=== PATIENT | female | born 1955 | race African-American/Black ===

== ENCOUNTER 2021-12-25 17:28 | Inpatient (IN) | payer OTHER ==
[2021-12-25 22:25] LABS: HEMATOCRIT 37.5 % (32.4-45.2); LYMPH % 49.4 % (8-40); MCH 27.4 pg (25.7-33.7); MCHC 32.1 g/dl (32.0-36.0); MEAN CELL VOLUME 85.5 fl (80-96); MEAN PLT VOLUME 7.7 fl (7.5-11.1); MONO % 8.8 % (3.8-10.2); NEUT % 37.8 % (42.8-82.8); PLATELET COUNT 306 10^3/uL (134-434); RBC 4.39 M/mm3 (3.60-5.2); RDW 13.1 % (11.6-15.6); WHITE BLOOD COUNT 5.4 K/mm3 (4.0-10.0)
[2021-12-25 22:31] LABS: INR 0.93 (0.83-1.09); PROTHROMBIN TIME (PATIENT) 10.7 SEC (9.7-13.0)
[2021-12-25 22:34] LABS: ACTIVATED PTT 29.1 SECONDS (25.2-36.5)
[2021-12-25 22:47] LABS: CALCIUM 9.1 mg/dL (8.5-10.1)
[2021-12-25 22:48] LABS: ALBUMIN 3.6 g/dl (3.4-5.0); BLOOD UREA NITROGEN 12.2 mg/dL (7-18)
[2021-12-25 22:51] LABS: CREATININE 0.7 mg/dL (0.55-1.3)
[2021-12-25 22:52] LABS: BILIRUBIN,TOTAL 0.2 mg/dL (0.2-1)
[2021-12-25 22:57] LABS: N-TERMINAL BNP 192.3 pg/ml (5-125)
[2021-12-26] MEDS ORDERED: ACETAMINOPHEN 1000 MG/100 ML BAG IVPB ONE (00:22)
[2021-12-26] MEDS ORDERED: ACETAMINOPHEN INJECTION 100 ML IVPB ONE (01:06)
[2021-12-26 04:01] VITALS: BMI 34.3
[2021-12-26] MEDS: CARVEDILOL 6.25 MG TABLET (FP) PO SCH ×2 (04:16→10:01)
[2021-12-26] MEDS: INSULIN SLIDING SCALE (NOVOLOG) 1 VIAL SQ SCH ×3 (06:44→17:19)
[2021-12-26] MEDS ORDERED: ASPIRIN COATED 81 MG TABLET.EC PO SCH (10:00)
[2021-12-26] MEDS ORDERED: FLU VACC QS2022-23(6MOS UP)/PF 60 MCG/0.5 ML SYRINGE IM ONE (10:00)
[2021-12-26] MEDS ORDERED: amLODIPine BESYLATE 5 MG TABLET (FP) PO SCH (10:00)
[2021-12-26] MEDS ORDERED: CYCLOBENZAPRINE HCL 5 MG TABLET PO SCH (10:00)
[2021-12-26] MEDS ORDERED: ISOSORBIDE MONONITRATE 30 MG TAB.SR.24H (FP) PO SCH (10:00)
[2021-12-26] MEDS ORDERED: LOSARTAN 50MG/HCTZ 12.5MG 1 TAB PO SCH (10:00)
[2021-12-26] MEDS ORDERED: CLOPIDOGREL BISULFATE 75 MG TABLET (FP) PO SCH (10:00)
[2021-12-26] MEDS ORDERED: PATIENT'S OWN MEDICATION (NON-FORMULARY) (Empagliflozin 25 MG Tablet) PO SCH (10:00)
[2021-12-26] MEDS ORDERED: ENOXAPARIN NA (PORCINE) 40 MG/0.4 ML DISP.SYRIN SQ SCH (10:00)
[2021-12-26 11:17] LABS: HEMATOCRIT 38.2 % (32.4-45.2); HEMOGLOBIN 12.3 GM/dL (10.7-15.3); MCH 27.6 pg (25.7-33.7); MCHC 32.3 g/dl (32.0-36.0); MEAN CELL VOLUME 85.3 fl (80-96); MEAN PLT VOLUME 7.6 fl (7.5-11.1); PLATELET COUNT 305 10^3/uL (134-434); RBC 4.47 M/mm3 (3.60-5.2); RDW 13.1 % (11.6-15.6); WHITE BLOOD COUNT 4.7 K/mm3 (4.0-10.0)
[2021-12-26 11:24] VITALS: RESP 18
[2021-12-26 11:35] LABS: MAGNESIUM 2.4 mg/dL (1.8-2.4)
[2021-12-26 11:36] LABS: BLOOD UREA NITROGEN 9.3 mg/dL (7-18); CALCIUM 9.4 mg/dL (8.5-10.1)
[2021-12-26 11:37] LABS: ALBUMIN 3.8 g/dl (3.4-5.0)
[2021-12-26 11:38] LABS: PHOSPHOROUS 3.3 mg/dL (2.5-4.9)
[2021-12-26 11:39] LABS: CREATININE 0.8 mg/dL (0.55-1.3)
[2021-12-26 11:41] LABS: BILIRUBIN,TOTAL 0.4 mg/dL (0.2-1); TOT PROT 6.9 g/dl (6.4-8.2)
[2021-12-26 11:45] LABS: ANISOCYTOSIS 0; HELMET CELLS 0; HOWELL-JOLLY BODIES 0; MACROCYTOSIS 0; OVALOCYTE 0; ROULEAU 0; SICKELED CELLS 0; TARGET CELLS 0; TEAR DROP CELLS 0; TOXIC GRANULATION 0
[2021-12-26] MEDS ORDERED: FUROSEMIDE 20 MG TABLET (FP) PO SCH ×2 (12:00→13:00)
[2021-12-26] MEDS ORDERED: LOSARTAN POTASSIUM 50 MG TABLET PO ONE (13:00)
[2021-12-26 13:42] LABS: URINE APPEARANCE CLEAR; URINE BILIRUBIN NEGATIVE (NEGATIVE); URINE COLOR YELLOW; URINE GLUCOSE (UA) 3+ (NEGATIVE); URINE KETONE NEGATIVE (NEGATIVE); URINE LEUK ESTERASE NEGATIVE (NEGATIVE); URINE NITRITE NEGATIVE (NEGATIVE); URINE PROTEIN NEGATIVE (NEGATIVE); URINE UROBILINOGEN 0.2 mg/dL (0.2-1.0)
[2021-12-26 14:34] VITALS: BP 115/64; PULSE 64; TEMP 98.1
[2021-12-26] MEDS ORDERED: ATORVASTATIN CA 40 MG TABLET (FP) PO SCH (22:00)
[2021-12-26] MEDS ORDERED: hydrALAZINE HCL 25 MG TABLET (FP) PO SCH (22:00)
[2021-12-26] MEDS ORDERED: GABAPENTIN 100 MG CAPSULE PO SCH (22:00)
[2021-12-27] MEDS ORDERED: ISOSORBIDE DINITRATE 20 MG TABLET PO SCH (08:00)
[2021-12-27] MEDS ORDERED: LOSARTAN POTASSIUM 50 MG TABLET PO SCH (10:00)
== END 2021-12-26 18:54 | disposition home or self-care (01) | DRG 313 ==
LOC: JER 17:28 → JERBED 22:45 → OBSVTOIN 12-26 01:35 → J4W 12-26 04:12
PROVIDERS: ADMIT Internal Medicine; ATTEND Internal Medicine
DX: R07.89 Other chest pain (principal); I11.0 Hypertensive heart disease with heart failure; E78.5 Hyperlipidemia, unspecified; E11.9 Type 2 diabetes mellitus without complications; I25.10 Atherosclerotic heart disease of native coronary artery without angina pectoris; Z95.5 Presence of coronary angioplasty implant and graft; E66.9 Obesity, unspecified; Z68.34 Body mass index [BMI] 34.0-34.9, adult
CPT/HCPCS: 36415; 71046-TC-FY; 71275-TC; 74178-TC; 80053; 80061; 81003; 82962; 83036; 83735; 83880; 84100; 84443; 84484; 85025; 85610; 85730; 93005; 93010; 93306-TC; 99285-25; C9803-CS; G0008; G0378; Q2036; Q9967; U0003; U0005

== ENCOUNTER 2022-01-13 09:44 | Emergency (ER) | payer OTHER ==
[2022-01-13 10:01] VITALS: BMI 35.0
[2022-01-13 11:23] LABS: BASO % 2.5 % (0-2.0); EOS % 3.1 % (0-4.5); HEMATOCRIT 38.5 % (32.4-45.2); HEMOGLOBIN 12.7 GM/dL (10.7-15.3); LYMPH % 44.5 % (8-40); MCH 28.3 pg (25.7-33.7); MCHC 32.9 g/dl (32.0-36.0); MEAN CELL VOLUME 85.8 fl (80-96); MEAN PLT VOLUME 7.1 fl (7.5-11.1); MONO % 6.8 % (3.8-10.2); NEUT % 43.1 % (42.8-82.8); PLATELET COUNT 323 10^3/uL (134-434); RBC 4.49 M/mm3 (3.60-5.2); RDW 13.5 % (11.6-15.6)
[2022-01-13 11:38] LABS: ACTIVATED PTT 34.4 SECONDS (25.2-36.5); INR 0.93 (0.83-1.09); PROTHROMBIN TIME (PATIENT) 10.7 SEC (9.7-13.0)
[2022-01-13 11:47] LABS: CALCIUM 9.6 mg/dL (8.5-10.1)
[2022-01-13 11:48] LABS: ALBUMIN 4.2 g/dl (3.4-5.0); MAGNESIUM 2.2 mg/dL (1.8-2.4)
[2022-01-13 11:51] LABS: CREATININE 0.9 mg/dL (0.55-1.3)
[2022-01-13 11:53] LABS: BILIRUBIN,TOTAL 0.4 mg/dL (0.2-1); TOT PROT 7.5 g/dl (6.4-8.2)
[2022-01-13] MEDS ORDERED: SACUBITRIL/VALSARTAN 24 MG-26 MG TABLET PO SCH (16:00)
[2022-01-13] MEDS ORDERED: ISOSORBIDE MONONITRATE 30 MG TAB.SR.24H (FP) PO SCH (16:00)
[2022-01-13] MEDS ORDERED: ISOSORBIDE MONONITRATE 30 MG TAB.SR.24H (FP) PO ONE (16:26)
[2022-01-13 20:00] VITALS: BP 140/82; PULSE 73; RESP 18
[2022-01-13 22:30] VITALS: TEMP 98.1
== END 2022-01-13 22:30 | disposition short-term general hospital (02) ==
LOC: JER 09:44
DX: R06.02 Shortness of breath (principal); R06.01 Orthopnea
CPT/HCPCS: 0241U-QW; 36415; 71046-TC-FY; 80053; 82962; 83735; 83880; 84484; 85025; 85610; 85730; 93005; 93010; 99285-25